=== PATIENT | female | born 1970 | race Two or more races ===

== ENCOUNTER 2018-06-03 20:16 | Emergency (ER) | payer OTHER ==
[~2018-06-03] VITALS: Ht 165.1 cm; Wt 83.9 kg
[2018-06-03] MEDS ORDERED: VITAMIN D400 UNI3 (20:29)
[2018-06-03] MEDS ORDERED: LOSARTAN POTAS100 MG (20:29)
[2018-06-04] MEDS ORDERED: PROTONIX40 MG PO (05:38)
[2018-06-04] MEDS ORDERED: ZOFRAN ODT4 MG PO ×2 (05:39→05:41)
[2018-06-04] MEDS ORDERED: LEVSIN/SL0.125 MG SL ×2 (05:40→05:41)
== END 2018-06-04 05:46 | disposition home or self-care (01) ==
LOC: ER 20:16
DX: K29.70 Gastritis, unspecified, without bleeding (principal)